=== PATIENT | female | born 1995 | race African-American/Black ===

== ENCOUNTER 2020-11-21 13:02 | Emergency (ER) | payer MEDICAID ==
[~2020-11-21] VITALS: Ht 152.4 cm; Wt 105.5 kg
[2020-11-21 13:50] VITALS: BP 123/63
--- NOTE | 2020-11-21 13:57 | PHYS DOC ---
General Adult EDM: Chief Complaint: KNEE INJURY HPI: HPI: Patient is a 25 year old female who presents with was going down some stairs when she started sliding down the stairs and her left side of her knee started banging up against a rock type wall. She states since then she is having hard time walking on it or with range of motion it is too painful. She states she did not take any pain medications. She denies any numbness or tingling. She states that it hurts too bad to move or walk on. She denies any past medical history. She denies any injury in the past to this knee. She denies hitting her head or actually falling down the stairs. Patient is rating her pain a 7 out of 10. It is more painful with movement. Review of Systems: Review of Systems: Constitutional: Denies fever or chills. [] Eyes: Denies change in visual acuity. [] HENT: Denies nasal congestion or sore throat. [] Respiratory: Denies cough or shortness of breath. [] Cardiovascular: Denies chest pain or + left knee edema. [] GI: Denies abdominal pain, nausea, vomiting, bloody stools or diarrhea. [] : Denies dysuria. [] Musculoskeletal: Denies back pain or + left knee joint pain. [] Integument: Denies rash. [] Neurologic: Denies headache, focal weakness or sensory changes. [] Endocrine: Denies polyuria or polydipsia. [] Lymphatic: Denies swollen glands. [] Psychiatric: Denies depression or anxiety. [] Heart Score: C/O Chest Pain: No Risk Factors: Risk Factors: DM, Current or recent (<one month) smoker, HTN, HLP, family history of CAD, obesity. Risk Scores: Score 0 - 3: 2.5% MACE over next 6 weeks - Discharge Home Score 4 - 6: 20.3% MACE over next 6 weeks - Admit for Clinical Observation Score 7 - 10: 72.7% MACE over next 6 weeks - Early Invasive Strategies Physical Exam: PE: Constitutional: Well developed, well nourished, no acute distress, non-toxic appearance. [] HENT: Normocephalic, atraumatic, bilateral external ears normal, oropharynx moist, no oral exudates, nose normal. [] Eyes: PERRLA, EOMI, conjunctiva normal, no discharge. [] Neck: Normal range of motion, no tenderness, supple, no stridor. [] Cardiovascular:Heart rate regular rhythm, no murmur [] Lungs & Thorax: Bilateral breath sounds clear to auscultation [] Abdomen: Bowel sounds normal, soft, no tenderness, no masses, no pulsatile masses. [] Skin: Warm, dry, no erythema, no rash. [] Back: No tenderness, no CVA tenderness. [] Extremities: No tenderness, no cyanosis, no clubbing, left knee ROM not intact, 1+ edema. [] Neurologic: Alert and oriented X 3, normal motor function, normal sensory function, no focal deficits noted. [] Psychologic: Affect normal, judgement normal, mood normal. [] Current Patient Data: Labs: Laboratory Tests Test 11/21/20 13:49 POC Urine HCG, Qualitative Hcg negative (Negative) EKG: EKG: [] Radiology/Procedures: Radiology/Procedures: [] Impression: [facility] [address] [place], [place] [id number] IMAGING REPORT Signed PATIENT: TYREE WILLIS ACCOUNT: [id number] : 1995 LOCATION: ER AGE: 25 SEX: F EXAM STATUS: REG ER ORD. PHYSICIAN: CYNDEE LIVE APRN REASON: PAIN AND HEARD A POP SHE WAS GOING DOWN STAIRS PROCEDURE: KNEE LEFT 4V EXAM: Left knee, 4 views. HISTORY: Pain. COMPARISON: None. FINDINGS: 4 views of the left knee are obtained. There is mild medial compartment joint space narrowing which is likely projectional. There is no fracture, dislocation or subluxation. There is no joint effusion. There is lateral patellofemoral compartment joint space narrowing. IMPRESSION: Lateral patellofemoral compartment and medial compartment joint space narrowing, a component of which is likely projectional. No acute osseous finding. Electronically signed by: Chanelle Holbrook MD (11/21/2020 2:15 PM) [id number] DICTATED and SIGNED BY: CHANELLE HOLBROOK MD DATE: 11/21/20 [id number] Course & Med Decision Making: Course & Med Decision Making Pertinent Labs and Imaging studies reviewed. (See chart for details) See HPI. Patient states all the pain is to the dorsal patella. She states is where she felt a pop also. I would say maybe 1+ swelling to the knee. When I mechanically move the knee and then go to put it back down patient is controlling it as it is going back down so it does not just swing. She does not seem to have any laxity in the joint. Pedal pulses strong are present. Skin is pink warm and dry. Cap refill less than 2 seconds. No deformity, abrasion or lacerations. No bruising. No tenderness. [] Dragon Disclaimer: Dragon Disclaimer: This electronic medical record was generated, in whole or in part, using a voice recognition dictation system. Departure Departure Impression: Primary Impression: Knee pain, left Qualified Codes: M25.562 - Pain in left knee Disposition: HOME / SELF CARE / HOMELESS Condition: STABLE Referrals: UNKNOWN PCP NAME (PCP) FRANCESCA MURCIA MD Patient Instructions: Knee Immobilizer, [id number], Knee Sprain Additional Instructions: Follow-up with primary care provider or I have referred you to a orthopedic doctor that you can call and try to schedule appointment. Your primary care doctor can always schedule you an MRI for your knee also. Use ice and elevation. You can also use a heating pad of that makes it feel better. Take medication as prescribed and with food. Use the knee immobilizer during the day and you can take it off at night if you would like. Scripts Ibuprofen (IBUPROFEN) 600 Mg Tablet 600 MG PO PRN Q6HRS PRN for INFLAMMATION, #20 TAB Prov: CYNDEE LIVE APRN 11/21/20 CYNDEE LIVE APRN Nov 21, 2020 13:57
[2020-11-21] MEDS ORDERED: HYDROcodone/APAP 5/325MG 1 TAB TABLET PO ONE (14:00)
--- NOTE | 2020-11-21 14:17 | RAD ---
EXAM: Left knee, 4 views. HISTORY: Pain. COMPARISON: None. FINDINGS: 4 views of the left knee are obtained. There is mild medial compartment joint space narrowi ng which is likely projectional. There is no fracture, dislocation or subluxation. There is no joint effusion. There is lateral patellofemoral compartment joint space narrowing. IMPRESSION: Lateral patellofemoral compartment and medial compartment joint space narrowing, a compon ent of which is likely projectional. No acute osseous finding. Electronically signed by: Chanelle Maher MD (11/21/2020 2:15 PM) [id number]
[2020-11-21] MEDS ORDERED: IBUP-1007 PO (14:22)
== END 2020-11-21 14:54 | disposition home or self-care (01) ==
LOC: ER 13:02
DX: M25.562 Pain in left knee (principal)
CPT/HCPCS: 73564; 81025; 99283